=== PATIENT | male | born 1960 | race Caucasian/White ===

== ENCOUNTER 2018-09-16 04:20 | Emergency (ER) | payer SELFPAY ==
[~2018-09-16] VITALS: Ht 190.5 cm; Wt 106.6 kg
[2018-09-16 04:20] VITALS: BP_SYST 155
[2018-09-16 04:50] VITALS: BP_SYST 155
== END 2018-09-16 04:50 ==
LOC: SED 04:20
DX: R21 Rash and other nonspecific skin eruption (principal); R03.0 Elevated blood-pressure reading, without diagnosis of hypertension; Z88.0 Allergy status to penicillin
CPT/HCPCS: 99283